=== PATIENT | male | born 1975 | race Caucasian/White ===

== ENCOUNTER 2019-04-01 00:36 | Emergency (ER) | payer SELFPAY ==
[2019-04-01 00:50] VITALS: BP 118/83; PULSE 79; RESP 18; TEMP 37.2; O2SAT 100; BMI 32.7
--- NOTE | 2019-04-01 01:01 | PC.NURSE ---
Pt went out back to pee after several drinks and tripped on something unknown. He cow tester out to stop himself and his right hand caught the wall while his left went through a window. Pt reports seeing blood squirting all over the place. Pt partner reports a small puddle of blood at the place of injury. Pt had a roll of paper towels saturated to the point of dripping when being wheeled into ED. Edgard ems stopped bleeding with abd pad and coban. [place] from lightheadedness and reached out to stop himself. Bleeding now controlled with abd pads and coban. Positive cms, radial pulse palpated. Pt reports It stings really bad when attempting to move hand and fingers.
--- NOTE | 2019-04-01 01:08 | PC.NURSE ---
Pt denies hitting his head. Pt denies other injuries. Pt is not on thinners
[2019-04-01 02:31] VITALS: BP 109/67; PULSE 81; RESP 18; O2SAT 99
--- NOTE | 2019-04-01 08:23 | ED_ITS ---
HPI - Wound/Laceration General Chief Complaint: Wound/Laceration Stated Complaint: Cut Left arm Time Seen by Provider: 04/01/19 00:40 Source: patient and family Mode of arrival: ambulatory Limitations: no limitations History of Present Illness HPI narrative: 43-year-old male with benign medical history on no home meds presents with his in the chief complaint of a laceration to his left forearm suffered a few hours ago. He stumbled while walking down some stairs and put his left arm through a glass window. He has a small but deep cut that was squirting blood on scene but has since stopped. His tetanus is current. He denies any numbness, tingling or weakness. His 1 other laceration down by his wrist but is otherwise well and free of complaint. He admittedly had a few drinks tonight. Onset (ago): hour(s) Extremity Location: Left: arm Body four view annotation: 1. Place: home Patient tetanus UTD: Yes Context: accidental Associated symptoms: pain Treatments prior to arrival: bandage Related Data Previous Rx's Medication Instructions Recorded cephalexin [Keflex] 500 mg PO QID 7 Days #28 cap 04/01/19 Allergies Allergy/AdvReac Type Severity Reaction Status Date / Time No Known Drug Allergies Allergy Verified 04/01/19 01:01 Review of Systems Constitutional Constitutional: Denies chills, Denies fatigue, Denies fever(s), Denies frequent falls, Denies lethargy and Denies weakness Eyes Eyes: Denies change in vision, Denies eye discharge, Denies irritation and Denies loss of vision ENT Ears, Nose, Mouth, and Throat: Denies change in voice, Denies dizziness, Denies neck pain, Denies sore throat and Denies throat swelling Cardiovascular Cardiovascular: Denies chest pain, Denies irregular heart rhythm, Denies lightheadedness, Denies palpitations, Denies dyspnea, Denies dyspnea on exertion and Denies orthopnea Respiratory Respiratory: Denies cough, Denies dyspnea, Denies dyspnea on exertion and Denies wheezing Gastrointestinal Gastrointestinal: Denies abdominal pain, Denies change in bowel habits, Denies diarrhea, Denies nausea and Denies vomiting Genitourinary Genitourinary: Denies hematuria, Denies flank pain, Denies urinary incontinence and Denies urinary urgency Musculoskeletal Musculoskeletal: Denies back pain, Denies muscle weakness, Denies neck pain, Denies numbness and Denies tingling Integumentary/Breasts Skin/Breast: Denies pruritus, Denies erythema, Denies rash and Reports wounds Neurologic Neurologic: Denies behavioral changes, Denies confusion, Denies dizziness, De nies frequent falls, Denies loss of vision, Denies numbness, Denies tingling and Denies weakness Psychiatric Psychiatric: Denies anxiety, Denies behavioral changes, Denies confusion, Denies depression, Denies homicidal ideation and Denies suicidal ideation Endocrine Endocrine: Denies fatigue, Denies flushing and Denies palpitations Hematologic/Lymphatic Hematologic/Lymphatic: Denies easy bruising Allergic/Immunologic Allergic/Immunologic: Denies urticaria, Denies throat swelling and Denies wheezing [facility] Social History household members: significant other Social History household members: significant other Exam Narrative Exam Narrative: GENERAL: [43] year old patient appears stated age. Well- nourished, well-developed patient, in mild distress. HEAD: Atraumatic. Normocephalic. EYES: Pupils equal round and reactive. Extraocular motions intact. No scleral icterus. No injection or drainage. ENT: Nose without bleeding, purulent drainage. Throat without erythema, tonsillar hypertrophy or exudate. Airway patent. NECK: Trachea midline. Non tender CARDIOVASCULAR: Regular rate and rhythm without murmurs, gallops, or rubs. RESPIRATORY: Clear to auscultation. Breath sounds equal bilaterally. No wheezes, rales, or rhonchi. GASTROINTESTINAL: Abdomen soft, non-tender, nondistended. EXTREMITIES: 2 cm laceration overlying mid shaft radius on left forearm. Dried blood noted but no active bleeding appreciated. No suspected tendon involvement. Patient has full range of motion and strength of the wrist and fin gers. Cap refill less 2 seconds. A smaller 1.5 cm laceration near his ulnar styloid noted, also with dried blood but no active bleeding. Compartments are soft, there is some tenderness and swelling, but minimal pain BACK: Nontender without deformity or crepitance. No flank tenderness. NEURO: AOx3. SKIN: No rash or erythema of visible areas Initial Vital Signs Initial Vital Signs: Vital Signs Temperature 98.9 F 04/01/19 00:50 Pulse Rate 79 04/01/19 00:50 Respiratory Rate 18 04/01/19 00:50 Blood Pressure 118/83 04/01/19 00:50 Pulse Oximetry 100 04/01/19 00:50 Procedures Laceration Repair Laceration 1: Site: upper extremity Side (If applicable): left Size (cm): 2 Description: linear and clean Depth: involves muscle layer Local Anesthetic: lidocaine 1% and with epi Amount of anesthesia used (mL): 4 Pre-repair: wound explored Skin layer closed with: nylon Size (cm): 4-0 Number of sutures: 6 Technique: simple, interrupted Laceration 2: Site: upper extremity Side (If applicable): left Size (cm): 1.5 Description: linear Depth: simple, single layer Local Anesthetic: lidocaine 1% and with epi Amount of anesthesia used (mL): 3 Pre-repair: wound explored Skin layer closed with: nylon Size (cm): 5-0 Number of sutures: 4 Course Vital Signs Vital signs: Vital Signs - 8 hr 04/01/19 00:50 04/01/19 02:31 Temperature 98.9 F Pulse Rate 79 81 Respiratory Rate 18 18 Blood Pressure 118/83 109/67 Pulse Oximetry 100 99 Discharge Plan Departure Patient Disposition: Home Clinical Impression: Laceration Discharge Date/Time: 04/01/19 02:39 Instructions: DI for Laceration Repair Activity Restrictions/Additional Instructions: Please keep the wound clean and dry to the best of your ability. Please monitor for signs of infection such as redness to the skin or increasing pain. Have the sutures removed by your doctor in about 7 days. If you are unable to get into your doctor, we would be happy to remove the sutures in that same timeframe. Return immediately for severe pain, numbness, or tingling of your hand/arm as this is a sign of a severe condition which would require additional, emergent help Prescriptions: New cephalexin [Keflex] 500 mg capsule 500 mg PO QID 7 Days Qty: 28 RF: 0
== END 2019-04-01 02:39 | disposition home or self-care (01) ==
PROVIDERS: Emergency Provider Emergency Medicine
DX: S51.812A Laceration without foreign body of left forearm, initial encounter (principal)
CPT/HCPCS: 12002; 99283

== ENCOUNTER 2019-04-01 05:10 | Inpatient (IN) | payer OTHER, MEDICAID, SELFPAY ==
[2019-04-01] VITALS (22 sets, daily range): BP systolic 108–167; BP diastolic 58–106; PULSE 72–113; RESP 12–24; TEMP 36.2–37.4; O2SAT 92–100; BMI 32.7
[2019-04-01] MEDS: HYDROMORPHONE 1 MG INJ IV (05:20)
[2019-04-01] MEDS: HYDROMORPHONE 0.5 MG INJ 1 MG IV ×2 (05:20→05:44)
--- NOTE | 2019-04-01 05:28 | ED_ITS ---
HPI - Extremity Injury (Upper) General Chief Complaint: Wound/Laceration Stated Complaint: Left arm laceration Time Seen by Provider: 04/01/19 05:17 Source: patient and family Mode of arrival: ambulatory Limitations: no limitations History of Present Illness HPI narrative: 43-year-old male smoker returns to the emergency department in our rate is pain complaining of numbness, tingling as well. He was seen earlier and had a laceration on the forearm after falling through a glass window. Patient had suture repairs. No arterial bleeding noted, but it was reported on scene. Patient left and ate breakfast. He was on his way to the [facility] when he started developing increasing pain in his forearm as well as numbness, tingling in his hand. This progressed and became very significant rather rapidly at which point he returned as he was instructed to. Related Data Previous Rx's Medication Instructions Recorded cephalexin [Keflex] 500 mg PO QID 7 Days #28 cap 04/01/19 Allergies Allergy/AdvReac Type Severity Reaction Status Date / Time No Known Drug Allergies Allergy Verified 04/01/19 01:01 Review of Systems Constitutional Constitutional: Denies chills, Denies fatigue, Denies fever(s), Denies frequent falls, Denies lethargy and Denies weakness Eyes Eyes: Denies change in vision, Denies eye discharge, Denies irritation and Denies loss of vision ENT Ears, Nose, Mouth, and Throat: Denies change in voice, Denies dizziness, Denies neck pain, Denies sore throat and Denies throat swelling Cardiovascular Cardiovascular: Denies chest pain, Denies irregular heart rhythm, Denies lightheadedness, Denies palpitations, Denies dyspnea, Denies dyspnea on exertion and Denies orthopnea Respiratory Respiratory: Denies cough, Denies dyspnea, Denies dyspnea on exertion and Denies wheezing Gastrointestinal Gastrointestinal: Denies abdominal pain, Denies change in bowel habits, Denies diarrhea, Denies nausea and Denies vomiting Genitourinary Genitourinary: Denies hematuria, Denies flank pain, Denies urinary incontinence and Denies urinary urgency Musculoskeletal Musculoskeletal: Denies back pain, Denies muscle weakness, Denies neck pain, Reports numbness and Reports tingling Integumentary/Breasts Skin/Breast: Denies pruritus, Denies erythema, Denies rash and Denies wounds Neurologic Neurologic: Denies behavioral changes, Denies confusion, Denies dizziness, Denies frequent falls, Denies loss of vision, Reports numbness, Reports tingling and Denies weakness Psychiatric Psychiatric: Denies anxiety, Denies behavioral changes, Denies confusion, Denies depression, Denies homicidal ideation and Denies suicidal ideation Endocrine Endocrine: Denies fatigue, Denies flushing and Denies palpitations Hematologic/Lymphatic Hematologic/Lymphatic: Denies easy bruising Allergic/Immunologic Allergic/Immunologic: Denies urticaria, Denies throat swelling and Denies wheezing [facility] Social History household members: significant other Exam Narrative Exam Narrative: GEN: AOx3 and in severe distress EYES: Pupils are equal, round, and reactive to light and accommodation. Extraoccular muscles are intact bilaterally. There is no subconjunctival hemorrhage or exudate. CHEST: Lungs are clear to auscultation bilaterally and free of wheezes, rales, or rhonchi. Heart rate is regular rhythm, there are no murmurs, clicks, rubs, or gallops. There is no chest wall tenderness. ABD: Abdomen is soft and nontender. There is no guarding or rebound. Bowel sounds are normal in all 4 quadrants. There is no mass or organomegaly. EXT: Right forearm very tense, incredibly painful, cap refill decreased. Hand is pink. Passive/active ROM results in pain out of proportion SKIN: Warm, pink, and dry. No erythema or rash Initial Vital Signs Initial Vital Signs: Vital Signs Pulse Rate 91 H 04/01/19 05:10 Respiratory Rate 24 04/01/19 05:10 Blood Pressure 153/96 H 04/01/19 05:10 Pulse Oximetry 100 04/01/19 05:10 Course Orders Ordered: ED Orders 04/01/19 05:20 Basic Metabolic Panel Stat Complete Blood Count AUTO DIFF Stat Type and Screen Stat Albuterol (Ventolin) 2.5 mg INH NOW PRN PRN Reason: Coughing, Wheezing, Dyspnea Benzocaine (Cepacol Lozenge) 1 each PO PRN PRN PRN Reason: Sore Throat Fentanyl (Sublimaze) 50 mcg IV Q5MIN PRN PRN Reason: Pain, Severe (7-10) Last Admin: 04/01/19 06:24 Dose: 50 mcg Documented by: CATHI Fentanyl (Sublimaze) 50 mcg IV Q5MIN PRN PRN Reason: Pain, Moderate (4-6) Hydromorphone HCl (Dilaudid) 0.5 mg IV Q5MIN PRN PRN Reason: Pain, Moderate (4-6) Hydroxyzine HCl (Vistaril) 25 mg IM NOW PRN PRN Reason: Pain, Mild (1-3) Lactated Ringer's (Lactated Ringers) 1,000 mls @ 42 mls/hr IV CONT GEMMA Last Admin: 04/01/19 06:25 Dose: 42 mls/hr Documented by: JOANAMDARNELL Lorazepam (Ativan) 0.5 mg IV NOW PRN PRN Reason: Anxiety Meperidine HCl (Demerol) 25 mg IV Q5MIN PRN PRN Reason: Pain or shivering Metoclopramide HCl (Reglan) 10 mg IV NOW PRN PRN Reason: Nausea And Vomiting Ondansetron HCl (Zofran) 4 mg IV NOW PRN PRN Reason: Nausea And Vomiting Discontinued Medications Heparin Sodium (Porcine) (Heparin) 5,000 unit SUBCUT NOW ONE Stop: 04/01/19 07:41 Last Admin: 04/01/19 07:40 Dose: 5,000 unit Documented by: MARIBELL Hydromorphone HCl (Dilaudid) 1 mg IV NOW ONE Stop: 04/01/19 05:32 Last Admin: 04/01/19 05:20 Dose: 1 mg Documented by: JONATHAN Hydromorphone HCl (Dilaudid) 1 mg IV NOW ONE Stop: 04/01/19 05:38 Last Admin: 04/01/19 05:44 Dose: 1 mg Documented by: JONATHAN Hydromorphone HCl (Dilaudid) 1 mg IV NOW ONE Stop: 04/01/19 05:43 Last Admin: 04/01/19 05:20 Dose: 1 mg Documented by: JONATHAN Famotidine (Pepcid) 20 mg in 50 mls @ 200 mls/hr IV NOW ONE Stop: 04/01/19 05:51 Last Admin: 04/01/19 05:44 Dose: 200 mls/hr Documented by: JONATHAN Cefazolin Sodium/Dextrose (Ancef) 2 gm in 100 mls @ 200 mls/hr IV NOW ONE Stop: 04/01/19 07:13 Last Infusion: 04/01/19 06:58 Dose: 0 mls/hr Documented by: Admin: 04/01/19 06:53 Dose: 200 mls/hr Documented by: FARA Cefazolin Sodium/Dextrose (Ancef) 2 gm in 100 mls @ 200 mls/hr IV NOW ONE Stop: 04/01/19 07:19 Last Admin: 04/01/19 06:58 Dose: Not Given Documented by: CATHI Metoclopramide HCl (Reglan) 10 mg IV NOW ONE Stop: 04/01/19 05:37 Last Admin: 04/01/19 05:45 Dose: 10 mg Documented by: JONATHAN Reevaluation(s) Reevaluation #1: little change after dilaudid Consultations Consultation #1: call to ortho immediately on arrival, clinical compartment syndrome Pressure measured with [employer] Pen. Pressure noted to be 80mmHg. Also, Diastolic at this time is 96. Delta pressure is 16 Consultation #2: Dr. Conklin at bedside Time: 05:42 Vital Signs Vital signs: Vital Signs - 8 hr 04/01/19 05:10 Pulse Rate 91 H Respiratory Rate 24 Blood Pressure 153/96 H Pulse Oximetry 100 MDM - Extremity Injury (Upper) Lab Data Result diagrams: 04/01/19 05:20 04/01/19 05:20 Labs: Lab Results 04/01/19 04/01/19 04/01/19 Range/Units 05:20 05:20 05:20 WBC 11.9 H (4.5-11.0) X10^3/uL RBC 4.26 L (4.5-5.9) X10^6/uL Hgb 13.7 (13.5-17.5) g/dL Hct 39.3 L (41-53) % MCV 92.4 (80-100) fL MCH 32.3 (26-34) PG MCHC 34.9 (30-36) % RDW 13.6 (11.6-14.8) % Plt Count 147 L (150-400) X10^3/uL Neut % (Auto) 80.0 H (50-75) % Lymph % (Auto) 13.3 L (25-40) % Ida % (Auto) 6.0 (3-14) % Eos % (Auto) 0.2 L (2-4) % Baso % (Auto) 0.5 (0-2) % Neut # (Auto) 9500 H (9427-5124) /uL Lymph # (Auto) 1600 (8852-3116) /uL Ida # (Auto) 700 (0-900) /uL Eos # (Auto) 0 (0-450) /uL Baso # (Auto) 100 (0-100) /uL Sodium 139 (137-145) mmol/L Potassium 3.9 (3.4-5.1) mmol/L Chloride 106 (98-107) mmol/L Carbon Dioxide 17 L (22-32) mmol/L BUN 11 (9-20) mg/dL Creatinine 1.20 (0.66-1.25) mg/dL Estimated GFR > 60.0 (>60) mL/min BUN/Creatinine Ratio 9.2 (6-22) Glucose 181 H (70-100) mg/dL Calcium 9.2 (8.4-10.2) mg/dL Blood Type O Positive Antibody Screen Negative Discharge Plan Departure Patient Disposition: Admitted as Observation Clinical Impression: Compartment syndrome of forearm Discharge Date/Time: 04/01/19 06:06 Admit Date/Time: 04/01/19 05:33 Admit Provider: Mirtha Saavedra
[2019-04-01] MEDS: FAMOTIDINE 20 MG/50 ML PIGGYBACK 200 MG IV (05:44)
[2019-04-01] MEDS: METOCLOPRAMIDE 10 MG/2 ML INJ IV (05:45)
[2019-04-01 05:46] LABS: Add Manual Diff / Slide Review NO; Basophils Absolute Auto 100 /uL (0-100); Basophils Percent Auto 0.5 % (0-2); Eosinophils Absolute Auto 0 /uL (0-450); Eosinophils Percent Auto 0.2 % (2-4); Hematocrit 39.3 % (41-53); Hemoglobin 13.7 g/dL (13.5-17.5); Lymphocytes Absolute Auto 1600 /uL (1100-4500); Lymphocytes Percent Auto 13.3 % (25-40); Mean Corpuscular HGB Conc 34.9 % (30-36); Mean Corpuscular Hemoglobin 32.3 PG (26-34); Mean Corpuscular Volume 92.4 fL (80-100); Monocytes Absolute Auto 700 /uL (0-900); Neutrophils Absolute Auto 9500 /uL (1500-7000); Platelet Count 147 X10^3/uL (150-400); Red Blood Cell Count 4.26 X10^6/uL (4.5-5.9); Red Cell Distribution Width 13.6 % (11.6-14.8); White Blood Cell Count 11.9 X10^3/uL (4.5-11.0)
[2019-04-01 05:58] LABS: BUN Creatinine Ratio 9.2 (6-22); Blood Urea Nitrogen 11 mg/dL (9-20); Calcium 9.2 mg/dL (8.4-10.2); Carbon Dioxide 17 mmol/L (22-32); Chloride 106 mmol/L (98-107); Estimated Glomerular Filt Rate > 60.0 mL/min (>60); Glucose 181 mg/dL (70-100); HEMOLYSIS < 15 (0-50); Potassium 3.9 mmol/L (3.4-5.1); Sodium 139 mmol/L (137-145)
--- NOTE | 2019-04-01 05:59 | PC.NURSE ---
Pt entered er in 05/03 pain. pt was seen prior for left forearm lac repair. Pt was educated on complications including compartment syndrome and his increasing pain cause him to return to the er screaming in pain. IV started in right arm. 2 verbal orders for 1mg of dilauded were recieved by this nurse for a total of 2mg dilaudid override from pyxis. Dilaudid took the edge off.
[2019-04-01] MEDS: fentaNYL 100 MCG/2 ML INJ 50 MCG IV ×3 (06:24→09:30)
[2019-04-01] MEDS: LACTATED RINGERS 1,000 ML 42 ML IV (06:25)
--- NOTE | 2019-04-01 06:25 | PM.HP.1 ---
History of Present Illness History of Present Illness Date Patient Seen: 04/01/19 Time Patient Seen: 06:09 Chief complaint: Left arm laceration Narrative: left arm compartment syndrome severe. This is a 43-year-old gentleman who was seen at [facility] Emergency Room on 03/31/2019. He lives on the [facility] he was going up the stairs at home when he slipped and fell and accidentally stuck his left arm through a plate glass window. He noted moderate bleeding at home and came to the emergency room for evaluation. In the emergency room his wound was repaired and there was no active bleeding. He was discharged to home and went to the [facility] and was waiting in line for the [facility]. He then developed severe worsening left arm pain and numbness tingling and inability to use his arm. The pain markedly progressed to the extent that he was screaming in pain and was heard by multiple people waiting in the [facility] line. Evaluation in the emergency room showed findings consistent with an acute carpet compartment syndrome with elevated compartment pressures and I was consulted on an emergent basis. Patient History Social History household members: significant other Smoking Status: Current every day smoker alcohol intake: current Family & Social History Safety & Behavioral: Feels Safe in Current Yes Environment Meds Home Medications and Allergies Home Medications Medication Instructions Recorded Confirmed Type cephalexin [Keflex] 500 mg PO QID 7 Days #28 cap 04/01/19 Rx Allergies Allergy/AdvReac Type Severity Reaction Status Date / Time No Known Drug Allergies Allergy Verified 04/01/19 01:01 Review of Systems Review of Systems Narrative: He has a history of some mild left elbow tendinitis, he is [id number], he denies any other problems on review full review of systems. Exam Vital Signs (past 8 hours): - 04/01/19 05:10 04/01/19 06:10 Pulse Rate 91 H 82 Respiratory Rate 24 Blood Pressure 153/96 H 156/99 H Pulse Oximetry 100 96 Oxygen Delivery Method Room Air Narrative Exam Narrative: HEENT benign, severe distress, writhing in pain, lungs clear, cor RRR, no murmer, marked left arm swelling with tense compartments, severe pain with passive stretch, dense numbness into the thumb index and middle finger both dorsal and palmar, adequate capillary refill, marked pain with any attempted active range of motion, palpable ulnar pulse and radial pulse, no active bleeding, surgical stitches in place Objective Labs Result Diagrams: 04/01/19 05:20 04/01/19 05:20 Labs: Laboratory Results - last 24 hr 04/01/19 04/01/19 04/01/19 05:20 05:20 05:20 WBC 11.9 H RBC 4.26 L Hgb 13.7 Hct 39.3 L MCV 92.4 MCH 32.3 MCHC 34.9 RDW 13.6 Plt Count 147 L Neut % (Auto) 80.0 H Lymph % (Auto) 13.3 L [place] % (Auto) 6.0 Eos % (Auto) 0.2 L Baso % (Auto) 0.5 Neut # (Auto) 9500 H Lymph # (Auto) 1600 [place] # (Auto) 700 Eos # (Auto) 0 Baso # (Auto) 100 Sodium 139 Potassium 3.9 Chloride 106 Carbon Dioxide 17 L BUN 11 Creatinine 1.20 Estimated GFR > 60.0 BUN/Creatinine Ratio 9.2 Glucose 181 H Calcium 9.2 Blood Type O Positive Antibody Screen Negative Assessment & Plan Assessment & Plan narrative: Acute left forearm compartment syndrome, severe. Plan emergent left fasciotomy. PAR discussed. Patient's intracompartmental pressure monitors showed elevation of 80 in the emergency room. The patient was in severe distress. His was at bedside. I explained the urgent nature of the surgery and that I recommended left forearm fasciotomy which is an extensive surgery in order to decrease the pressure on his muscles and keep his arm from dying. Long-term concerns requiring multiple operations and loss of function in the arm were discussed and the emergent nature of the procedure to avoid loss of his arm was discussed. They understand and agree and consent to surgery and he was taken immediately to the operating room.
--- NOTE | 2019-04-01 06:52 | PC.NURSE ---
Took verbal order from Quentin in OR for 2 grams on ancef, they are not able to get it out of their pyxis
[2019-04-01] MEDS: CEFAZOLIN 2 GM/100 ML FROZ.PIGGY IV ×3 (06:53→22:00)
--- NOTE | 2019-04-01 06:56 | SUR.OPER ---
Supine on padded OR bed, head on pillow, non-operable arm secured on padded arm board at <90 degrees abduction, legs uncrossed, safety belt at thigh, tape over blanket over lower legs.
--- NOTE | 2019-04-01 06:59 | PC.NURSE ---
ran ancef down to OR, OR able to pull from [place] by the time I got down there. Returned our ancef to our [facility]
--- NOTE | 2019-04-01 07:10 | SUR.HOLD ---
Pt brought to [facility] to prep for surgery, VS done, pt medicated with Fentanyl and after all verification components met pt then taken quickly into surgery.
[2019-04-01] MEDS: HEPARIN 5,000 UNIT/ML VIAL 5000 UNIT SUBCUT (07:40)
[2019-04-01] MEDS: THROMBIN (RECOMBINANT) 5,000 UNIT VIAL 5000 UNIT TOP (07:54)
[2019-04-01] MEDS: HYDROMORPHONE 2 MG INJ 0.5 MG IV ×4 (09:19→09:42)
--- NOTE | 2019-04-01 10:24 | SUR.PHASEI ---
pt transferred to acute care floor in stable condition, vss. pt alert and talking to RN during transport. pt girlfriend in room upon arrival to room. bedside report given to ALEXANDRE Barboza upon arrival to room. Transferred care of pt to ALEXANDRE Barboza at that time.
[2019-04-01] MEDS: OXYCODONE IR 5 MG TABLET PO ×3 (12:40→23:46)
[2019-04-01] MEDS: ONDANSETRON 4 MG ODT PO (12:43)
--- NOTE | 2019-04-01 13:15 | PM.OP.1 ---
Operative Date/Time/Diagnoses Date of procedure: 04/01/19 Time of procedure: 06:09 Pre-op diagnosis: Acute severe left forearm compartment syndrome Post-op diagnosis: other (Severe left forearm compartment syndrome with a complete laceration of the radial artery with active arterial bleeding) Procedure & Clinicians Procedure: Extensive left forearm fasciotomy volar and dorsal with debridement of limited severely ischemic FCR muscle, radial artery ligation with exploration of the penetrating wound with injury to arterial structures, inter compartmental pressure monitoring preoperatively folder and dorsal and post fasciotomy and release volar and dorsal, carpal tunnel release Same procedure as scheduled: Yes Indications: This is a 43-year-old gentleman who was taken to the operating room on an emergent basis for a severe left compartment syndrome. He had a history of injury to his left forearm with a plate glass window at home and then developed severe left arm pain with markedly elevated compartment pressures and a clinical examination consistent with severe compartment syndrome. The OR crew was quickly mobilized and he was brought to the operating room on an emergent basis as soon as possible for fasciotomy. Surgeon: Mirtha Saavedra Mechanic Insulator: Anand Charlton Anesthesia Type: General Operative Notes Findings: Preoperative Intraoperative compartmental pressure monitoring showed volar compartment pressure 87, dorsal compartment pressure more than 60, tense compartments with ischemic appearing muscle, a small amount of nonviable appearing flexor carpi radialis muscle, complete laceration of the radial artery with active bleeding, palpable ulnar artery with an adequately perfused hand and viable appearing hand, adequate filling of the radial artery distal to the level of the transection which was pulsatile Closure Type: not applicable Estimated Blood Loss (mL): 250 Tourniquet time (min): 0 Procedure in detail: Patient was brought to the operating room on an emergent basis. The operating room crew was quickly mobilized and the patient underwent a general anesthesia with full stomach precautions. His left upper extremity was prepped and draped sterilely. A time-out was performed. Preoperative antibiotics were not available due to a problem with the pyxis, but the patient had previously received antibiotics in the emergency room. A high arm tourniquet was applied in case it was required to control uncontrolled bleeding. The patient was carefully prepped and [place] pressure monitor revealed marked elevation of the pressures in the volar compartment over 85. Dorsal inner compartmental pressure monitoring revealed pressures in the 60s. Next he was prepped for surgical approach. An extensive volar skin incision was made from the proximal aspect of the forearm distally and in a curvilinear pattern across the volar crease and over the transverse carpal ligament. Dissection was carried out down to the forearm fascia. The volar compartments were extremely tense. The fascia was meticulously incised over the volar compartments. The muscle immediately bulged through the fascia. Metzenbaum scissors was used to release the fascia both proximally and distally for each compartment. The patient had a radial volar skin incision which had previously been repaired as well as a more ulnar volar skin incision. Dissection was carried out along the radial side of the forearm in order to confirm adequate fascial release. The fascia was carefully released and there was marked pulsatile bleeding from deep within the compartment. Direct pressure was placed on the arterial bleeding. Dr. Martins from the emergency room was available in the operating room and scrubbed in to hold manual compression so that I had 2 hands to dissect around the artery. The distal artery was not actively bleeding. Dr. Charlton from general surgery with vascular experience was available to provide additional assistance. Hemostasis was controlled with compression until the proximal radial artery could be adequately controlled with a vessel loop. Dissection was carried out around the artery and it was completely clear that there was a complete transection. The artery was carefully examined and both Dr. Charlton and I agreed that the patient had a viable appearing hand he had an intact arch and there was good pulsatile backflow into the artery distal to the transection. The artery was carefully examined it was noted to be damaged and it was not felt to be a good candidate for repair. Combination of surgical ties and vascular clips was use to tie off the artery. The wound was meticulously irrigated with normal saline. At that point there was no active arterial bleeding. Gelfoam and thrombin was packed into the wound where there was a small amount of muscle bleeding. Next the compartments were once again checked and the forearm was meticulously re-irrigated with normal saline. There was a large amount of clot throughout the forearm which was carefully removed. Forearm volar compartments were carefully checked and noted to be adequately decompressed. Next attention was directed to the distal aspect of the forearm. The transverse carpal ligament was identified and meticulously released. There was moderate hematoma which had dissected into the carpal canal. It was meticulously irrigated. The median nerve was noted to be intact. Forearm fascia was reached checked and noted to be adequately released. Next attention was directed at the dorsal aspect of the arm. The dorsal distal arm was soft but the mobile wad was noted to be tense and had significant swelling. A dorsal radial incision was made dissection was carried out through skin and subcutaneous tissues. The fascia was identified and meticulously released. There was obvious swelling in the muscle but the muscle appeared viable. The release both proximally and distally was checked. Next the inner compartment all pressure monitor was used to check the pressure of the compartments both on the dorsal and volar aspect of the forearm. Intracompartmental pressure monitoring revealed pressures under 10 both dorsally and volarly. The wound was meticulously irrigated with normal saline. The arm appeared viable with adequate capillary refill. The wounds were covered with saline sponges and the wound was dressed sterilely. Patient was placed in a bulky splint. Complications: none Post-operative Condition: stable (Arm appeared viable, patient will be monitored for neurovascular checks and additional bleeding) Disposition: Acute Care Plan for aftercare: Wound check in 24-48 hours, continue IV antibiotics, possible partial DPC in 48 hours or 7-10 days depending upon clinical course.
[2019-04-01] MEDS: ACETAMINOPHEN 325 MG TABLET 975 MG PO ×2 (14:54→20:14)
[2019-04-01] MEDS: hydrOXYzine pamoate 25 MG CAPSULE 50 MG PO ×2 (14:57→23:46)
[2019-04-01] MEDS: HYDROMORPHONE 0.5 MG INJ IV (14:57)
--- NOTE | 2019-04-01 14:58 | PM.PN.1 ---
Subjective Subjective Date Patient Seen: 04/01/19 Time Patient Seen: 14:19 Interval history: Pain is markedly decreased in comparison to preoperatively. He still has residual numbness but it is improved in comparison to previously. Exam Vital Signs (past 8 hours): - 04/01/19 09:02 04/01/19 09:07 04/01/19 09:12 Temperature 97.2 F L Pulse Rate 109 H 113 H 110 H Respiratory Rate 12 14 12 Blood Pressure 167/106 H 163/93 H 141/94 H Pulse Oximetry 94 97 98 04/01/19 09:17 04/01/19 09:22 04/01/19 09:27 Temperature Pulse Rate 100 H 95 H 99 H Respiratory Rate 15 21 13 Blood Pressure 154/92 H 149/84 H 145/86 H Pulse Oximetry 95 98 98 04/01/19 09:36 04/01/19 09:51 04/01/19 10:06 Temperature 97.3 F L 97.5 F L Pulse Rate 95 H 95 H 98 H Respiratory Rate 13 18 12 Blood Pressure 129/91 H 130/79 128/70 Pulse Oximetry 98 98 93 04/01/19 10:20 04/01/19 11:00 04/01/19 11:20 Temperature 97.9 F 98.5 F Pulse Rate 90 90 81 Respiratory Rate 16 14 16 Blood Pressure 142/93 H 131/90 111/75 Pulse Oximetry 97 94 93 04/01/19 12:20 04/01/19 13:20 Temperature 97.2 F L 97.3 F L Pulse Rate 91 H 82 Respiratory Rate 16 16 Blood Pressure 123/65 128/82 Pulse Oximetry 97 97 Oxygen Delivery Method Room Air Oxygen Flow Rate 0 Narrative Exam Narrative: Splints in place, dressing is dry, able to fire his finger flexors and extensors, adequate capillary refill, minimal pain with both active and passive gentle range of motion in his hand, decreased sensation both on the palmar and volar aspect of his wrist but improved in comparison to preoperatively Objective Labs Result Diagrams: 04/01/19 05:20 04/01/19 05:20 Labs: Laboratory Results - last 24 hr 04/01/19 04/01/19 04/01/19 05:20 05:20 05:20 WBC 11.9 H RBC 4.26 L Hgb 13.7 Hct 39.3 L MCV 92.4 MCH 32.3 MCHC 34.9 RDW 13.6 Plt Count 147 L Neut % (Auto) 80.0 H Lymph % (Auto) 13.3 L [place] % (Auto) 6.0 Eos % (Auto) 0.2 L Baso % (Auto) 0.5 Neut # (Auto) 9500 H Lymph # (Auto) 1600 [place] # (Auto) 700 Eos # (Auto) 0 Baso # (Auto) 100 Sodium 139 Potassium 3.9 Chloride 106 Carbon Dioxide 17 L BUN 11 Creatinine 1.20 Estimated GFR > 60.0 BUN/Creatinine Ratio 9.2 Glucose 181 H Calcium 9.2 Blood Type O Positive Antibody Screen Negative Assessment & Plan Assessment & Plan narrative: Severe left volar forearm compartment syndrome and radial artery laceration clinically improved after fasciotomy. Plan continue IV antibiotics and anticipate return to operating room on Tuesday for irrigation and debridement and possible partial DPC. Pain control and elevation with gentle range of motion in the interim. Quality VTE Deep Vein Thrombosis/Pulmonary Embolism Present on Admission: No
[2019-04-01] MEDS: HYDROMORPHONE 2 MG TABLET 4 MG PO ×2 (15:28→20:14)
[2019-04-01 16:56] LABS: Hematocrit 36.1 % (41-53); Hemoglobin 12.3 g/dL (13.5-17.5)
--- NOTE | 2019-04-01 17:26 | PT-IP ANOTE ---
PT consult received. Unable to see patient today due to time constraints. Will follow up on 04/02/19
--- NOTE | 2019-04-01 19:00 | DI.RAD.S_ITS ---
PROCEDURE: XR FOREARM RT 2V INDICATIONS: post op compartment syndrome surgery TECHNIQUE: 2 views of the forearm were acquired. COMPARISON: None. FINDINGS: Bones: No fractures or dislocations. No suspicious bony lesions. Soft tissues: Diffuse soft tissue swelling. Surgical clips project in the volar soft tissues IMPRESSION: Soft tissue swelling. No fracture. No radiopaque foreign body identified. Dictated by: Ayaan Garcia M.D. on 04/01/2019 at 21:29 Approved by: Ayaan Garcia M.D. on 04/01/2019 at 21:30
--- NOTE | 2019-04-01 19:14 | PC.NURSE ---
pt returned from previous visit today with increased swelling and disproportional pain. He states he can not feel his fingers and it is almost impossible to move his hand and fingers. proximal left forearm skin very tight and painful to touch. Pt is audibly gritting his teeth in pain. Provider notified and at bedside upon pt arrival.
[2019-04-01] MEDS: DOCUSATE 100 MG CAPSULE PO (20:19)
--- NOTE | 2019-04-01 21:52 | PC.NURSE ---
Pt is A and O x 4, VSS. He rates his pain 8-9/10 but is able to ambulate, use the BR, eat, drink etc., without significant distress. He has pain when moving his fingers but he is able to do so. Good CMS and faint brachial pulse. He took a shower with assist. SO in room.
[2019-04-02] VITALS (7 sets, daily range): BP systolic 106–150; BP diastolic 50–71; PULSE 76–95; RESP 15–20; TEMP 36.3–37.1; O2SAT 96–98
[2019-04-02] MEDS: HYDROMORPHONE 2 MG TABLET 4 MG PO ×6 (02:22→23:46)
[2019-04-02 05:38] LABS: Hematocrit 31.7 % (41-53); Hemoglobin 10.8 g/dL (13.5-17.5); Mean Corpuscular Hemoglobin 32.4 PG (26-34); Mean Corpuscular Volume 95.2 fL (80-100); Platelet Count 87 X10^3/uL (150-400); Red Blood Cell Count 3.32 X10^6/uL (4.5-5.9); Red Cell Distribution Width 13.4 % (11.6-14.8); White Blood Cell Count 12.7 X10^3/uL (4.5-11.0)
[2019-04-02] MEDS: CEFAZOLIN 2 GM/100 ML FROZ.PIGGY IV ×3 (06:18→23:41)
--- NOTE | 2019-04-02 07:24 | PM.PNPO.1 ---
Subjective Subjective Date Patient Seen: 04/02/19 Time Patient Seen: 07:24 Interval history: Patient denies fever chills. No nausea vomiting. Pain is severe. Exam Vital Signs (past 8 hours): - 04/01/19 23:57 04/02/19 05:46 Temperature 98.6 F 97.6 F Pulse Rate 105 H 84 Respiratory Rate 16 16 Blood Pressure 108/58 L 106/50 L Pulse Oximetry 97 98 Fraction of Inspired Oxygen 21 Oxygen Delivery Method Room Air Oxygen Flow Rate 0 Narrative Exam Narrative: Dressing in place. Sensation intact to all fingers, left upper extremity. Able to move all fingers however very painful due to do so. All fingers are warm and dry. Objective Labs Result Diagrams: 04/02/19 05:10 04/01/19 05:20 Labs: Laboratory Results - last 24 hr 04/01/19 04/02/19 16:48 05:10 WBC 12.7 H RBC 3.32 L Hgb 12.3 L 10.8 L Hct 36.1 L 31.7 L MCV 95.2 MCH 32.4 MCHC 34.0 RDW 13.4 Plt Count 87 L Assessment & Plan Post-op Postoperative Procedures: Procedures Operation Date: 04/01/19 07:00 Actual Procedures Side Surgeon p Dupuytren's Contracture Release Palmar Fasciectomy Mirtha Saavedra MD Postop day 1 status post extensive left forearm fasciotomy volar and dorsal with debridement of limited severely ischemic FCR muscle, radial artery ligation with exploration of the penetrating wound with injury to arterial structures, anterior compartment all pressure monitoring preoperatively volar and dorsal and post fasciotomy, released volar and dorsal, carpal tunnel release. Work on pain control, elevation left upper extremity with gentle range of motion in the interim. Continue IV antibiotics and possible return to OR tomorrow for irrigation debridement and possible DPC. Quality VTE Deep Vein Thrombosis/Pulmonary Embolism Present on Admission: No
[2019-04-02] MEDS: ACETAMINOPHEN 325 MG TABLET 975 MG PO ×3 (07:30→19:51)
[2019-04-02] MEDS: DOCUSATE 100 MG CAPSULE PO ×2 (07:30→19:52)
[2019-04-02] MEDS: POLYETHYLENE GLYCOL 3350 17 GM POWD.PACK PO (07:30)
[2019-04-02] MEDS: HYDROMORPHONE 0.5 MG INJ IV ×6 (07:31→22:41)
[2019-04-02] MEDS: diphenhydrAMINE 25 MG TABLET PO ×2 (07:41→16:47)
--- NOTE | 2019-04-02 07:42 | PC.NURSE ---
Addendum entered by Katlin Vazquez R.N. 04/02/19 15:23: Spoke with Dr Myles via telephone at 1430, gave MD update on patients condition. Dr Myles informed of patients pain of 7/10 and that he was getting the dilaudid 4mg PO q4 and was requiring the 0.5mg IVP dilaudid q2 for breakthrough. Gabapentin added. Patient reports the IVP is very helpful for the burning pain to the LUE. Capillary refill remains intact and unchanged from this mornings assessment and <2sec. Fingers are warm and patient is able to wiggle fingers. Patient keeping extremity elevated. Several dime sized spot of sanguineous drainage noted on pillow case. Small area of dried drainage noted to dressing at elbow. Evening RN given report and update. Addendum entered by Katlin Vazquez R.N. 04/02/19 14:16: Patient rates LUE pain 9/10 GIven 0.5mg IVP. Patient reports relief from iv medication, states it takes the edge off. Original Note: Pt alert oriented, rates pain to LUE 7/10, given PO dilaudid at 0618. Given 0.5mg IVP dilaudid for break through. Also c/o itching, received order for po benadryl, given. CMS intact to LUE, patient denies numbness, tingling, able to move all fingers, LUE elevated.
--- NOTE | 2019-04-02 09:00 | PT.IIE ---
Surgery Performed Operation Date: 04/01/19 07:00 Actual Procedures p Dupuytren's Contracture Release Palmar Fasciectomy - Mirtha Saavedra MD Operation Date: 04/03/19 16:45 <No data on this case meets the specified criteria> Physical Therapy Inpatient Evaluation/Re-Eval M2 PT-IP Current Condition Start: 04/02/19 08:53 Freq: NEEDED Status: Active Protocol: Document 04/02/19 09:00 RS (Rec: 04/02/19 13:16 RS [id number]) Physical Therapy Current Condition Current Condition Evaluation Date 04/02/19 Treatment Diagnosis s/p L forearm fasciotomy Onset Date 04/01/19 Precautions Other Precautions in bulky splint for LUE with open incision M3 PT-IP Subjective Start: 04/02/19 08:53 Freq: NEEDED Status: Active Protocol: Document 04/02/19 09:00 RS (Rec: 04/02/19 13:16 RS [id number]) Subjective Physical Therapy Visit Type Type Initial Evaluation Visit Start Time 08:30 Visit Stop Time 09:00 Total Visit Minutes 30 Therapy Pain Assessment Pain When Pain Assessed At Rest Pain Present Pain Present Pain Reported M4 PT-IP Mobility and Gait Start: 04/02/19 08:53 Freq: NEEDED Status: Active Protocol: Document 04/02/19 09:00 RS (Rec: 04/02/19 13:16 RS [id number]) PT-Bed Mobility Assessment Supine to Sit Supine to Sit Independent Sit to Supine Sit to Supine Independent PT-Transfer Assessment Sit to and From Stand Sit to and from Stand Independent Equipment Transfer Assistive Device None Transfer Ability Level of Assist Independent Gait Assessment Gait Gait Assistance Required: Independent Gait Deviations General Gait Pattern Within Normal Limits PT-Balance Assessment Sitting Balance and Reactions Static Sitting Balance Ability Normal Dynamic Sitting Balance Ability Normal Standing Balance and Reactions Static Standing Balance Ability Normal Dynamic Standing Balance Ability Normal Device Used none M5 PT-IP Objective Assessments Start: 04/02/19 08:53 Freq: NEEDED Status: Active Protocol: Document 04/02/19 09:00 RS (Rec: 04/02/19 13:16 RS [id number]) Orientation Orientation/Cognition Level of Alertness Alert Orientation Name,Age,Birthday,Month,Date, Year,Day of Week,Place, Situation Language Function Ability No Deficits Noted Safety Awareness Understands Safety Issues Memory Description No Deficits Noted Gross Range of Motion Lower Extremity ROM Assessment Within Functional Limits Strength Lower Extremity Strength Assessment Within Functional Limits M7 PT-IP Assessment and Plan Start: 04/02/19 08:53 Freq: NEEDED Status: Active Protocol: Document 04/02/19 09:00 RS (Rec: 04/02/19 13:16 RS [id number]) PT Summary Assessment and Plan Potential Rehabilitation Potential Excellent Status of Condition at Evaluation Evolving Summary Impairments Pain Assessment Summary Pt presents with LUE in bulky splint after forearm fasciotomy yesterday. Pt's main limiting factors are more specific to function of the LUE and self-care. Pt is independent with mobility and so far is getting assist with any self-care from his who was a BUSINESS CONTINUITY DIRECTOR. Pt has no acute PT needs, therefore, acute PT will sign off with the anticipation that pt will continue to mobilize regularly with encouragement from nursing staff. It is highly recommended that patient receive acute OT while here in the hospital (either for self -care only and/or for beginning to work on L hand/ arm function) once it is deemed appropriate by ortho team to begin using the LUE. Frequency of Treatment Frequency Of Treatment Discharge Recommendations To Nursing Amount of Assist Needed Standby Assistance Discharge Recommendations PT Discharge Recommendations Home with Assistance, Outpatient PT Other Discharge Recommendations needs a referral to a hand therapist (can be PT or OT)
[2019-04-02] MEDS: hydrOXYzine pamoate 25 MG CAPSULE 50 MG PO ×2 (10:18→19:52)
[2019-04-02] MEDS: SODIUM CHLORIDE 0.9% FLUSH 10 ML IV ×4 (10:19→21:00)
[2019-04-02] MEDS: GABAPENTIN 300 MG CAPSULE PO ×2 (16:44→23:46)
--- NOTE | 2019-04-02 17:05 | CM.SWNOTE ---
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 Pt is a 43 yo male admitted to due to injury resulting in compartment syndrome. Pt lives with SO and her 2 children ages 18 and 28 on [address]. Pt reported that he tripped over their dog and went through a glass window causing significant injury to his arm. Pt does not have a current PCP. Payor: [employer]. Pharmacy used is the pharmacy on [address]. Pt is independent with all ADLs. 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 Although he will not be able to do the physical work, he reported that he will still be able to supervise the jobs upon discharge. Plan: Discharge home when medically stable. Pt [place] the ferry to return home to [place]. CM to follow if discharge needs arise. 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 No Advance Directives on File No History Provided By Patient Has Patient been admitted in last 30 No days? Prior Living Arrangements House Household Members significant other Type of transporation used prior to Drives own vehicle admit Independent with ADL's Yes Is patient alert and oriented? Yes Caregiver for Another No Barriers to Discharge No Discharge Plan Home Referrals Initiated None needed Next Review Type Continued Stay Review
--- NOTE | 2019-04-02 18:23 | PC.NURSE ---
Addendum entered by Mahogany Dinh R.N. 04/02/19 22:42: Pt up ad karen in room. Med Q 2 hrs for discomfort w/ minimal relief rangiong [id number] CSM intact. Relatively uneventful evening Call light w/in reach. Calls appropriately for needs. Continue w/plan of care. Addendum entered by Mahogany Dinh R.N. 04/02/19 22:31: Original Note: Pt resting, left arm elevated on pillows. Able t wiggle finger, circulation good. Med at 1655 w/ diaudid IVP for 8/10 pain w.fair relief. HL RFA intact/patent. Up independently in room Call light w/in reach, calls appropriately for needs.
[2019-04-03] VITALS (13 sets, daily range): BP systolic 115–155; BP diastolic 56–92; PULSE 72–111; RESP 8–20; TEMP 36.1–37.1; O2SAT 92–100
[2019-04-03] MEDS: HYDROMORPHONE 0.5 MG INJ IV ×4 (00:37→08:59)
[2019-04-03] MEDS: SODIUM CHLORIDE 0.9% FLUSH 10 ML IV ×6 (02:52→20:20)
--- NOTE | 2019-04-03 04:23 | PC.NURSE ---
0350 Checked pt. to administer 4 mg. of PO Dilaudid, but he's sound asleep. Returned 2 tabs. of PO Dilaudid back to [facility], Will monitor & medicate him when he wakes up.
[2019-04-03] MEDS: GABAPENTIN 300 MG CAPSULE PO (06:00)
[2019-04-03] MEDS: HYDROMORPHONE 2 MG TABLET 4 MG PO (06:49)
[2019-04-03] MEDS: CEFAZOLIN 2 GM/100 ML FROZ.PIGGY IV ×3 (09:00→21:39)
[2019-04-03] MEDS: hydrOXYzine pamoate 25 MG CAPSULE 50 MG PO (09:00)
[2019-04-03] MEDS: diphenhydrAMINE 25 MG TABLET PO ×2 (09:07→23:36)
--- NOTE | 2019-04-03 09:58 | PC.NURSE ---
Pt woken for clear liquid diet before being NPO for surgery this afternoon. Once awake rates pain to LUE 9/10 given 0.5 mg IVP dilaudid. Pt c/o burning to IV site, IV removed. New one started. Patient ate clear liquid for breakfast and is now NPO. New order for IV pain meds taken.
[2019-04-03] MEDS: HYDROMORPHONE 1 MG INJ IV ×5 (10:20→19:02)
[2019-04-03] MEDS: SODIUM CHLORIDE 0.9% 1,000 ML 75 ML IV (14:27)
--- NOTE | 2019-04-03 18:22 | PC.NURSE ---
Addendum entered by Mahogany Dinh R.N. 04/03/19 22:40: Pt remains in surgery at this time. Addendum entered by Mahogany Dinh R.N. 04/03/19 21:36: Med @ 1900 for 01/31 pain. Pt escorted to surgery by staff. Will assess upon return to room. Original Note: Pt up ad karen in room. Awaiting surgery this evening. Lungs clear, SpO2 98% RA Dsg to left arm intact. CSM + can wiggle fingers. Med @ 1700 for discomfort w/fair relief. Remains NPO at this time. Call light w/in reach, call appropriately for needs.
[2019-04-03] MEDS: LACTATED RINGERS 1,000 ML 42 ML IV (20:54)
--- NOTE | 2019-04-03 21:15 | PM.PREOP ---
Pre-operative Note Interval Note History & Physical reviewed/Exam performed by Physician: No Changes to H&P: No H&P completed within 30 days and has changed as indicated here:: He notes his numbness in his hand is markedly improved in comparison to previously. He is able to fire his finger flexors and extensors but is continuing to have significant pain. He has adequate capillary refill no substantial pain with gentle passive stretch of his muscles and his hand is warm and viable
--- NOTE | 2019-04-03 21:17 | P.OP_ITS ---
Operative Date/Time/Diagnoses Date of procedure: 04/03/19 Time of procedure: 21:17 Pre-op diagnosis: Left arm compartment syndrome with history of fasciotomies and large open wounds, laceration to the radial aspect of the arm with history of radial artery laceration Post-op diagnosis: same Procedure & Clinicians Procedure: Irrigation and debridement with limited excisional debridement of necrotic muscle and partial DPC 8 cm dorsal wound, 16 cm of the volar wound which was a partial closure. Same procedure as scheduled: Yes Indications: This is a gentleman that previously underwent a fasciotomy for a forearm compartment syndrome and ligation of his radial artery for complete artery transection. He is now brought to the operating room for repeat evaluation irrigation and debridement and potential debridement of necrotic muscles. Surgeon: Mirtha Saavedra Click Yes if Unassisted: Yes Anesthesia Type: General Operative Notes Findings: No active bleeding, viable appearing muscles, 8 cm dorsal incision closed with no tension, more than 25 cm volar incision partially closed about 16 cm including the carpal canal and the part of proximal portion. Vessel loop and skin keiry used to provide some slight residual tension in the central section. Closure Type: non-primary Specimen(s): none sent Applied: cast(s) Estimated Blood Loss (mL): 50 Blood products transfused: none Tourniquet time (min): 0 Procedure in detail: Patient is brought to the operating room and underwent induction of a general anesthesia. Left upper extremity was prepped and draped standard sterile fashion. High arm tourniquet was applied but not elevated. Time-out was performed and antibiotics were given. Patient was prepped sterilely. The left arm was meticulously irrigated with normal saline. His wounds were carefully explored. Dorsally his incision appeared to have adequate decompression and the compartment was soft and there did not appear to be any necrotic muscle. The dorsal 8 cm incision was irrigated with normal saline and then closed with interrupted are then then closed with interrupted nylon. Attention was directed to the volar aspect of the arm. The arm was meticulously irrigated with normal saline. I carefully checked all of the volar compartments as well as the carpal canal of there was good decompression of the median nerve of there was no active bleeding. There Was a small amount of narcotic of mildly necrotic tissue noted in the most radial aspect of the forearm in the region of the laceration. A small amount of necrotic appearing muscle was excisionally debrided. The majority of the muscles and the volar compartment were carefully checked and they were all noted to be viable pink and with good circulation. The wound was meticulously irrigated and some additional hematoma was evacuated. The carpal canal was closed with interrupted nylon. And the forearm was gently or loosely closed partially closed 16 cm of the volar wound but the overall wound was about more than 25 cm. In the more central aspect of the wound I did place skin keiry and a vessel loop to serve as light retention to maintain some light slight tension on the skin. The wound was irrigated with normal saline. The open section was packed was covered with saline spoke soaked gauze sponge. the patient was placed in a short-arm splint. Marcaine was injected. Complications: none Post-operative Condition: stable Disposition: Acute Care Plan for aftercare: Continue IV antibiotics, okay to work on gentle range of motion in the fingers and elbow. Pain control as needed. Return to the operating room likely Tuesday for additional I and D and closure is needed. outpatient hand therapy in the [facility].
--- NOTE | 2019-04-03 21:46 | SUR.OPER ---
Supine on padded OR bed, head on pillow, right arm secured on padded arm board at <90 degrees abduction, Left arm on large padded armboard controlled by surgeon, legs uncrossed, safety belt at thigh.
[2019-04-03] MEDS: BUPIVACAINE 0.5% (PF) VIAL 30 ML INJ (21:53)
[2019-04-03] MEDS: HYDROMORPHONE 2 MG INJ 0.5 MG IV ×4 (23:07→23:33)
--- NOTE | 2019-04-03 23:11 | SUR.PHASEI ---
Clarified dilaudid pacu order with dr greenberg. Ok to give 0.5 mg every 5min in pacu
[2019-04-03] MEDS: OXYCODONE IR 5 MG TABLET 10 MG PO (23:25)
--- NOTE | 2019-04-03 23:38 | SUR.PHASEI ---
Pt intermittently dozing and waking, cussing. Reported pain improving. C/O itching, medicated with Benadry.
[2019-04-04] VITALS (12 sets, daily range): BP systolic 114–149; BP diastolic 57–99; PULSE 65–106; RESP 10–22; TEMP 36.4–37.3; O2SAT 93–99
--- NOTE | 2019-04-04 | SUR.PHASEI ---
Report called to Anthony. Pt removed o2, sats 95% ra while awake, in low 90s on ra while dozing
--- NOTE | 2019-04-04 00:23 | SUR.PHASEI ---
Pt transferred to the floor with pulse ox. Report to Anthony. VS stable. IV saline locked. LT arm drsg cdi. Lt fingers warm, yellow/pink, weak movement to fingers. Family present.
[2019-04-04] MEDS: GABAPENTIN 300 MG CAPSULE PO ×4 (00:58→18:00)
[2019-04-04] MEDS: HYDROMORPHONE 1 MG INJ IV ×7 (00:59→21:10)
[2019-04-04] MEDS: hydrOXYzine pamoate 25 MG CAPSULE 50 MG PO ×3 (03:32→19:05)
--- NOTE | 2019-04-04 04:02 | PC.NURSE ---
Addendum entered by Anthony Jarrett R.N. 04/04/19 07:03: 0615: IV found out. Restarted in rt forearm. Original Note: Hide And Skin Classer Note: 0015: Pt back to room 216 from PACU. Pt awake, alert. Lt arm elevated on pillow, with dressing and splint intact. Lt fingers are warm to touch, pale pink, and pt is able to wiggle fingers; when asked if he feels any numbness, pt states not really. IV in place in rt hand and NS started at 75cc/hr. Pt used urinal after arrival. Pt recently medicated for pain with Dilaudid and Oxycodone. Sig. other at bedside.
[2019-04-04] MEDS: diphenhydrAMINE 25 MG TABLET PO ×3 (06:12→21:07)
[2019-04-04] MEDS: CEFAZOLIN 2 GM/100 ML FROZ.PIGGY IV ×2 (07:25→16:50)
[2019-04-04] MEDS: ACETAMINOPHEN 325 MG TABLET 975 MG PO ×3 (07:26→21:09)
[2019-04-04] MEDS: POLYETHYLENE GLYCOL 3350 17 GM POWD.PACK PO (07:26)
[2019-04-04] MEDS: SODIUM CHLORIDE 0.9% FLUSH 10 ML IV ×4 (07:27→21:12)
[2019-04-04] MEDS: DOCUSATE 100 MG CAPSULE PO ×2 (07:27→21:07)
--- NOTE | 2019-04-04 07:58 | PM.PNPO.1 ---
Subjective Subjective Date Patient Seen: 04/04/19 Time Patient Seen: 07:58 Interval history: Patient's pain has been moderate to severe. Denies fever chills. No nausea vomiting. He has noticed he is able to move his fingers better and denies numbness in the left upper extremity. Exam Vital Signs (past 8 hours): - 04/04/19 00:02 04/04/19 00:10 04/04/19 00:40 Temperature 98.9 F 98.5 F Pulse Rate 91 H 86 92 H Respiratory Rate 10 L 22 20 Blood Pressure 137/99 H 129/73 128/82 Pulse Oximetry 93 96 98 04/04/19 01:10 04/04/19 02:10 04/04/19 03:10 Temperature 98.5 F 98.6 F 98.8 F Pulse Rate 105 H 106 H 102 H Respiratory Rate 20 18 Blood Pressure 140/70 131/79 120/58 L Pulse Oximetry 95 96 94 Fraction of Inspired Oxygen 21 Oxygen Delivery Method Room Air Oxygen Flow Rate 2 Narrative Exam Narrative: 43-year-old male resting comfortably in bed in no apparent distress. The dressing is clean, dry and intact. Fingers are mildly swollen. He has motor function to all fingers. Good capillary refill. Sensation intact to light touch. Objective Labs Result Diagrams: 04/02/19 05:10 04/01/19 05:20 Assessment & Plan Post-op Postoperative Procedures: Procedures Operation Date: 04/01/19 07:00 Actual Procedures Side Surgeon p Dupuytren's Contracture Release Palmar Fasciectomy Mirtha Saavedra MD Operation Date: 04/03/19 16:45 Actual Procedures Side Surgeon p Arm I&D with limited debridement of muscle w/ partial DPC Left Mirtha Saavedra MD Postop day 3 extensive left forearm fasciotomy volar and dorsal with debridement of limited severely ischemic FCR muscle, radial artery ligation and exploration of penetrating wound with injury to arterial structures Postop day 1 status post irrigation debridement with limited excisional debridement of necrotic muscle and partial DPC 8 cm dorsal wound, 16 cm of volar wound. Continue IV antibiotics. Okay to work on gentle range of motion of fingers and elbow. Continue work on pain control. Likely return in 2 days for additional I and D and closure. Patient will need outpatient hand therapy after discharge from the hospital. Quality VTE Deep Vein Thrombosis/Pulmonary Embolism Present on Admission: No
[2019-04-04] MEDS: HYDROMORPHONE 2 MG TABLET 4 MG PO ×4 (08:34→21:07)
[2019-04-04] MEDS: HYDROMORPHONE 0.5 MG INJ IV ×2 (15:01→18:00)
[2019-04-05] MEDS: CEFAZOLIN 2 GM/100 ML FROZ.PIGGY IV ×4 (00:16→23:42)
[2019-04-05] MEDS: GABAPENTIN 300 MG CAPSULE PO ×5 (00:17→23:41)
[2019-04-05] MEDS: hydrOXYzine pamoate 25 MG CAPSULE 50 MG PO ×4 (00:17→20:57)
[2019-04-05] MEDS: HYDROMORPHONE 1 MG INJ IV ×14 (00:19→23:41)
--- NOTE | 2019-04-05 02:57 | PC.NURSE ---
Cyber Incident Analyst Note: 0015: Awake, resting in bed. Lt arm elevated on pillow. Vital signs stable. IV in place in rt forearm. Pt states his pain is 9/10: medicated with Dilaudid 1mg IV and Vistaril 50mg po. Dressing and splint intact to lt arm, clean and dry. Lt fingers are warm to touch, with brisk capillary refill, and pt denies numbness and is able to wiggle them.
[2019-04-05 06:04] VITALS: BP 120/70; PULSE 63; RESP 15; TEMP 36.3; O2SAT 98
[2019-04-05] MEDS: HYDROMORPHONE 2 MG TABLET 4 MG PO ×5 (06:15→22:02)
[2019-04-05] MEDS: diphenhydrAMINE 25 MG TABLET PO ×3 (06:51→22:02)
[2019-04-05 08:00] VITALS: BP 156/69; PULSE 64; RESP 18; TEMP 36.5; O2SAT 99
[2019-04-05] MEDS: DOCUSATE 100 MG CAPSULE PO ×2 (08:46→20:57)
[2019-04-05] MEDS: POLYETHYLENE GLYCOL 3350 17 GM POWD.PACK PO (08:47)
[2019-04-05] MEDS: ACETAMINOPHEN 325 MG TABLET 975 MG PO ×3 (08:47→20:56)
[2019-04-05] MEDS: SODIUM CHLORIDE 0.9% FLUSH 10 ML IV ×5 (08:50→23:41)
--- NOTE | 2019-04-05 10:21 | PM.PNPO.1 ---
Subjective Subjective Date Patient Seen: 04/05/19 Time Patient Seen: 10:22 Interval history: Hospital day 5, postop day 4 and 2 following left forearm compartment syndrome and radial artery laceration with volar and dorsal fasciotomy, radial artery ligation and carpal tunnel release by Dr. Saavedra. Patient is complaining mostly of the forearm splint being loose and rubbing on his arm causing increased pain. No numbness to his hand. He is scheduled to go back to the OR tomorrow with Dr. Saavedra for further wound closure. Exam Vital Signs (past 8 hours): - 04/05/19 06:04 04/05/19 08:00 Temperature 97.3 F L 97.7 F Pulse Rate 63 64 Respiratory Rate 15 18 Blood Pressure 120/70 156/69 H Pulse Oximetry 98 99 Fraction of Inspired Oxygen 21 Oxygen Delivery Method Room Air Oxygen Flow Rate 0 Narrative Exam Narrative: Alert, oriented no acute distress sitting in bed. Left arm. Good blanching and sensation of fingers. The splint is loose and irritating the arm with movement. The bias wrap was removed from the splint and further padding applied proximally and then splint re-wrapped with Jean Carlos wrap and patient states this feels much better. Objective Labs Result Diagrams: 04/02/19 05:10 04/01/19 05:20 Assessment & Plan Post-op Postoperative Procedures: Procedures Operation Date: 04/01/19 07:00 Actual Procedures Side Surgeon p Dupuytren's Contracture Release Palmar Fasciectomy Mirtha Saavedra MD Operation Date: 04/03/19 16:45 Actual Procedures Side Surgeon p Arm I&D with limited debridement of muscle w/ partial DPC Left Mirtha Saavedra MD Operation Date: 04/06/19 13:00 <No data on this case meets the specified criteria> Plan: Patient will continue with left arm elevation. Changed IV Dilaudid to 1 mg q.1h as needed for better pain control. Patient will be NPO after midnight per anticipated left arm surgery tomorrow Quality VTE Deep Vein Thrombosis/Pulmonary Embolism Present on Admission: No
--- NOTE | 2019-04-05 11:04 | DIET.PN ---
Dietary Progress Note Assessment: 43y M Hospital day 5, postop day 4 and 2 following left forearm compartment syndrome and radial artery laceration with volar and dorsal fasciotomy, radial artery ligation and carpal tunnel release by Dr. Saavedra. Pt is consuming 100% of meals c General diet order. HT: 187.9cm WT: 115.6kg BMI: 32 Labs: hgb 10.8 (L) Nutrition Diagnosis: Increased PRO needs r/t wound healing aeb extensive multiple procedures for arm laceration. Interventions: Recc ONS Kei bid to aid collagen formation and wound healing Monitoring/Evaluations: as needed
[2019-04-05 12:00] VITALS: BP 128/75; PULSE 65; RESP 14; TEMP 36.4; O2SAT 97
[2019-04-05] MEDS: KETOROLAC 30 MG/ML VIAL IV ×2 (15:37→22:02)
[2019-04-05 16:00] VITALS: BP 125/77; PULSE 73; RESP 18; TEMP 36.6; O2SAT 97
[2019-04-05] MEDS: OXYCODONE ER 10 MG TAB PO (20:57)
[2019-04-05 20:59] VITALS: BP 141/62; PULSE 74; RESP 17; TEMP 36.5; O2SAT 96
--- NOTE | 2019-04-05 22:11 | PC.NURSE ---
pain management pt has rated pain 6-9/10 throughout shift. keeping Left arm elevated when in bed. Non verbal cues indicate 3-4/10 as pt is able to converse and joke easily and is playing games for distraction with family. Pt continues to be alert and able to voice needs/questions. Pt anticipates surgery tomorrow.
[2019-04-05 23:34] VITALS: BP 138/66; PULSE 83; RESP 17; TEMP 36.2; O2SAT 99
[2019-04-06] VITALS (15 sets, daily range): BP systolic 90–136; BP diastolic 53–87; PULSE 62–86; RESP 10–22; TEMP 36.1–36.6; O2SAT 92–100
[2019-04-06] MEDS: hydrOXYzine pamoate 25 MG CAPSULE 50 MG PO ×3 (01:26→19:58)
[2019-04-06] MEDS: HYDROMORPHONE 2 MG TABLET 4 MG PO ×3 (02:12→21:06)
[2019-04-06] MEDS: HYDROMORPHONE 1 MG INJ IV ×8 (06:06→22:19)
[2019-04-06] MEDS: SODIUM CHLORIDE 0.9% FLUSH 10 ML IV ×5 (06:06→21:06)
[2019-04-06] MEDS: diphenhydrAMINE 25 MG TABLET PO (06:06)
[2019-04-06] MEDS: GABAPENTIN 300 MG CAPSULE PO ×2 (06:06→17:32)
[2019-04-06] MEDS: CEFAZOLIN 2 GM/100 ML FROZ.PIGGY IV ×2 (08:39→15:55)
[2019-04-06] MEDS: ACETAMINOPHEN 325 MG TABLET 975 MG PO ×3 (08:39→21:05)
[2019-04-06] MEDS: OXYCODONE ER 10 MG TAB PO ×2 (08:40→21:05)
[2019-04-06] MEDS: LACTATED RINGERS 1,000 ML 42 ML IV (12:44)
--- NOTE | 2019-04-06 13:19 | SUR.OPER ---
Supine on padded OR bed, head on pillow, arms secured on padded arm boards at <90 degrees abduction, legs uncrossed, safety belt at thigh, tape over blanket over lower legs.
[2019-04-06] MEDS: BUPIVACAINE 0.5% (PF) VIAL 30 ML INJ (13:23)
[2019-04-06] MEDS: HYDROMORPHONE 2 MG INJ 0.5 MG IV ×4 (13:57→14:21)
--- NOTE | 2019-04-06 15:14 | PM.OP.1 ---
Operative Date/Time/Diagnoses Date of procedure: 04/06/19 Time of procedure: 13:04 Pre-op diagnosis: Left forearm fasciotomy with open wound Post-op diagnosis: same Procedure & Clinicians Procedure: Irrigation and debridement left forearm, closure of 8 cm fasciotomy wound Indications: 43-year-old gentleman with a history of compartment syndrome and fasciotomies who is now return to the operating room for repeat irrigation and debridement and possible closure. Surgeon: Mirtha Saavedra Click Yes if Unassisted: Yes Anesthesia Type: General Operative Notes Findings: Healing wound with decreased swelling and decreased tension closed with no significant tension, minimal debridement of subcutaneous tissue, no necrotic-appearing muscle Closure Type: non-primary Specimen(s): none sent Estimated Blood Loss (mL): 10 Blood products transfused: none Tourniquet time (min): 0 Procedure in detail: History of brought to the operating room he underwent general anesthesia. His left upper extremity prepped draped standard sterile fashion. High arm tourniquet was applied but not elevated. Patient is on an of preoperative antibiotics and the dose was not do. Time-out was performed. The patient's left arm was meticulously irrigated with normal saline a small amount of subcutaneous fat was debrided, the muscle appeared viable, there was an 8 cm wound with about a 3-4 cm gap centrally. It was closed with interrupted nylon with near far far near suture technique. The subcutaneous flaps were gently mobilized. There did not appear to be excessive tension. The previous surgical wounds appear to be healing appropriately. The wounds were dressed sterilely and he was placed in a left arm splint. Complications: none Post-operative Condition: stable Disposition: Acute Care Plan for aftercare: Okay to do progressive [id number] exercises, splint for a week, outpatient therapy to work on progressive arm range of motion and strengthening, okay to DC his splint, remove sutures at 10-14 days postoperatively
--- NOTE | 2019-04-06 17:01 | CM.DPC ---
DCP: continued: EMR reviewed and case discussed in Team Rounds today. Pt going again to OR. DCP team to continue to follow. P: had been identified in DCP assessment note by SAMANTHA Joe as home when stable for same. Pt would benefit from a check in after surgery to see is this plan remains doable and appropriate.
[2019-04-06] MEDS: DOCUSATE 100 MG CAPSULE PO (21:05)
[2019-04-07] MEDS: GABAPENTIN 300 MG CAPSULE PO ×2 (00:18→06:58)
[2019-04-07] MEDS: HYDROMORPHONE 1 MG INJ IV ×2 (00:26→05:15)
[2019-04-07] MEDS: SODIUM CHLORIDE 0.9% FLUSH 10 ML IV ×3 (00:27→09:01)
[2019-04-07 00:29] VITALS: BP 102/65; PULSE 75; RESP 18; TEMP 36.4; O2SAT 95
[2019-04-07] MEDS: HYDROMORPHONE 2 MG TABLET 4 MG PO ×2 (01:31→06:58)
[2019-04-07 04:54] VITALS: BP 102/49; PULSE 71; RESP 16; TEMP 36.4; O2SAT 95
--- NOTE | 2019-04-07 07:01 | PC.NURSE ---
Patient having pain issues. Requiring IV and po dilaudid. Declines ice for arm/hand, states it makes the pain worse. Able to sleep between meds.
[2019-04-07] MEDS: POLYETHYLENE GLYCOL 3350 17 GM POWD.PACK PO (09:00)
[2019-04-07] MEDS: ACETAMINOPHEN 325 MG TABLET 975 MG PO (09:00)
[2019-04-07] MEDS: OXYCODONE ER 10 MG TAB PO (09:00)
[2019-04-07] MEDS: DOCUSATE 100 MG CAPSULE PO (09:01)
[2019-04-07] MEDS: hydrOXYzine pamoate 25 MG CAPSULE 50 MG PO (09:01)
--- NOTE | 2019-04-07 09:50 | PM.DS.1 ---
History of Present Illness History of Present Illness Date Patient Seen: 04/07/19 Time Patient Seen: 09:50 Chief complaint: Left arm laceration Narrative: Extensive left forearm fasciotomy volar and dorsal with debridement of limited severely ischemic FCR muscle, radial artery ligation with exploration of the penetrating wound with injury to arterial structures, inter compartmental pressure monitoring preoperatively folder and dorsal and post fasciotomy and release volar and dorsal, carpal tunnel release Same procedure as scheduled: Yes Indications: This is a 43-year-old gentleman who was taken to the operating room on an emergent basis for a severe left compartment syndrome. He had a history of injury to his left forearm with a plate glass window at home and then developed severe left arm pain with markedly elevated compartment pressures and a clinical examination consistent with severe compartment syndrome. The OR crew was quickly mobilized and he was brought to the operating room on an emergent basis as soon as possible for fasciotomy. Discharge Providers Provider Date of admission: 04/01/19 05:33 Discharge Date: 04/07/19 Consults: 04/01/19 10:44 Consult to Discharge Planning Routine Comment: Consult to Physical Therapy Evaluate & Treat Comment: Physician Instructions: Evaluate and Treat Consult to Respiratory Therapy Evaluate & Treat Comment: Physician Instructions: Evaluate and treat Discharge provider: Virgen Gallego PA-C Summary Hospital Course Discharge Diagnosis: s/p faciotomies s/p I+D and primary closure Hospital Course: Romaine was admitted for a laceration to his left forearm after he stumbled while walking down some stairs and put his left arm through a glass window. He has a small but deep cut that was squirting blood on scene. He developed compartment syndrome. On 04/01, he underwent Extensive left forearm fasciotomy volar and dorsal with debridement of limited severely ischemic FCR muscle, radial artery ligation with exploration of the penetrating wound with injury to arterial structures, inter compartmental pressure monitoring preoperatively folder and dorsal and post fasciotomy and release volar and dorsal, carpal tunnel release. On 04/03, he underwent Irrigation and debridement with limited excisional debridement of necrotic muscle and partial DPC 8 cm dorsal wound, 16 cm of the volar wound which was a partial closure. On 04/06, he underwent Irrigation and debridement left forearm, closure of 8 cm fasciotomy wound. He has had difficulty with pain control while in the hospital. His pain is now well controlled with OxyContin 10 mg b.i.d., Dilaudid 4 mg q.3 hours, Vistaril 50 mg, gabapentin, and Tylenol. His splint is well fitting today and CDI. He is eating and voiding without difficulty or assistance. Has been elevating his arm. Exam Vital Signs (past 8 hours): - 04/07/19 04:54 Temperature 97.6 F Pulse Rate 71 Respiratory Rate 16 Blood Pressure 102/49 L Pulse Oximetry 95 Fraction of Inspired Oxygen 21 Oxygen Delivery Method Room Air Oxygen Flow Rate 0 Narrative Exam Narrative: Patient lying in bed in no acute distress. He is alert and oriented x3. Calves are soft, compressible, nontender bilaterally. Splint on left arm is CDI. He is able to wiggle his fingers. Auto Wheel Alignment Specialist strength strong equal. Objective Labs Result Diagrams: 04/02/19 05:10 04/01/19 05:20 Discharge Plan Discharge Plan Patient Disposition: Home Discharge Med Rec/Prescriptions Prescriptions: New docusate sodium [DOK] 100 mg Capsule 100 mg PO BID Qty: 60 RF: 0 hydromorphone [Dilaudid] 2 mg tablet 2 mg PO Q4-6H PRN (Reason: pain) Qty: 60 RF: 0 gabapentin [Neurontin] 300 mg Capsule 300 mg PO Q6HR Qty: 30 RF: 1 hydroxyzine pamoate 25 mg Capsule 50 mg PO Q4HR PRN (Reason: Muscle Spasm) Qty: 50 RF: 1 acetaminophen 325 mg Tablet 975 mg PO TID Qty: 60 RF: 0 ibuprofen 400 mg tablet 400 mg PO Q6H PRN (Reason: pain) Qty: 60 RF: 0 oxycodone [OxyContin] 10 mg Tablet,Oral Only,Ext.Rel.12 Hr 10 mg PO BID Qty: 16 RF: 0 Discontinued cephalexin [Keflex] 500 mg capsule 500 mg PO QID 7 Days Qty: 28 RF: 0 Follow up/Referrals: Mirtha Saavedra MD [Physician] - (10-14 days; please call to schedule.) Provider Discharge Instructions Activity: Per Op note: remove sutures at 10-14 days postoperatively. okay to DC his splint, Okay to do progressive [id number] exercises outpatient therapy to work on progressive arm range of motion and strengthening, Cold/Heat Therapy: as needed Skin/Wound/Dressing Care Report to your healthcare provider any signs of infection, such as:: chills, fever and increased pain Dressing: leave in place until appointment Visit Report/Discharge Packet Instructions: How to Care for a Laceration After Repair, Acute Compartment Syndrome, DI for Incision and Drainage, [facility]: Wound Care Quality VTE Deep Vein Thrombosis/Pulmonary Embolism Present on Admission: No
--- NOTE | 2019-04-07 11:12 | CM.DPC ---
DCP Discharge Home Per MD, pt is medically stable to d/c home today via spouse POV. Per RN, pt and spouse have questions about their medical insurance as Admissions Counselors were able to confirm pt qualifies for about.me. SW printed off pt's [employer] eligibility information and member id from scanning in Registration notes and met bedside with pt and spouse and they will take his [employer] information to [facility] in [place] to get rx filled prior to catching the [address]30 ferry back to [place]. Plan: Patient to d/c home today via spouse POV back to [place] and no further SW needs at this time. SAMANTHA Mccormack
--- NOTE | 2019-04-07 12:14 | PC.NURSE ---
Discharge Pt states pain is controlled with oral meds. d/c instructions provided to pt and his girlfriend. Aware to f/u with MD for f/u apts as well as for any additional questions or concerns. Left with all belongings. Received copy of insurance information from PARKING ANALYST and received Rx for d/c as well. Given to pt's girlfriend at d/c. left in w/c with SUPERVISOR ASSEMBLY DEPARTMENT escort.
== END 2019-04-07 11:15 | disposition home or self-care (01) | DRG 317 ==
LOC: ED 05:33 → AC 05:43
PROVIDERS: Anesthesiology; Admitting Provider Orthopaedic Surgery; Emergency Provider Emergency Medicine; Visit Provider Orthopaedic Surgery
PROC: 0KNB0ZZ Release Left Lower Arm and Wrist Muscle, Open Approach (ICD-10-PCS; CPT 26045; principal; 2019-04-01 07:00)
PROC: 0KBB0ZZ Excision of Left Lower Arm and Wrist Muscle, Open Approach (ICD-10-PCS; principal; 2019-04-03 16:45)
PROC: 0KDB0ZZ Extraction of Left Lower Arm and Wrist Muscle, Open Approach (ICD-10-PCS; principal; 2019-04-06 13:00)
DX: T79.A12A Traumatic compartment syndrome of left upper extremity, initial encounter (principal); S55.112A Laceration of radial artery at forearm level, left arm, initial encounter; I96 Gangrene, not elsewhere classified; W18.39XA Other fall on same level, initial encounter; Y92.008 Other place in unspecified non-institutional (private) residence as the place of occurrence of the external cause
CPT/HCPCS: 12002; 36415; 36591; 73090; 80048; 85014; 85018; 85025; 85027; 86850; 86900; 86901; 94760; 94762; 96374; 96375; 96376; 97161; 97530; 99281; 99283; J0330; J0690; J1100; J1170; J1644; J1885; J2250; J2405; J2704; J2765; J3010

== ENCOUNTER 2022-07-11 18:20 | Emergency (ER) | payer OTHER, SELFPAY ==
[2019-04-01 11:00] VITALS: BMI 32.7
[2022-07-11 18:34] VITALS: BP 145/91; PULSE 114; RESP 18; O2SAT 97; BMI 33.3
[2022-07-11] MEDS: OLANZapine ODT 10 MG TAB 20 MG PO (18:54)
--- NOTE | 2022-07-11 19:05 | PC.NURSE ---
Placed patient's omeprazole bottle, cyclobenzaprine bottle, cigarettes, law librarian, and dip can into locked patient belongings. Pt educated on reason and agrees with plan. Pt has clothes, cards, and his phone with him. Provided pt safety attire to change into, pt states he would like to search his clothing for tracking devices then will change. Educated on plan of care, pt verbalizes understanding, safety ensured.
[2022-07-11 19:10] VITALS: TEMP 37.3
[2022-07-11 19:16] LABS: Ur Creatinine Normal (Normal); Ur Specific Gravity Normal (Normal); Urine pH Normal (Normal)
[2022-07-11 19:17] LABS: UR Morphine/Opiate cutoff 300 Negative (Negative); Urine Amphetamines Positive (Negative); Urine Barbiturates Negative (Negative); Urine Benzodiazepines Negative (Negative); Urine Cocaine Negative (Negative); Urine MDMA Negative (Negative); Urine Methamphetamines Positive (Negative); Urine Phencyclidine Negative (Negative); Urine Tetrahydrocannabinol Positive (Negative)
[2022-07-11 19:18] LABS: Urine Oxycodone Negative (Negative); Urine Tricyclic Antidepressant Positive (Negative)
[2022-07-11 19:23] LABS: Bacteria Urine None Seen; Hyaline Casts Urine 0-1/LPF; RBC Urine None Seen (0-5/HPF); WBC Urine 0-1/HPF (0-5/HPF)
[2022-07-11 19:23] LABS: Add Manual Diff / Slide Review NO; Basophils Absolute Auto 0 /uL (0-100); Basophils Percent Auto 0.4 % (0-2); Eosinophils Absolute Auto 100 /uL (0-450); Eosinophils Percent Auto 0.5 % (2-4); Hematocrit 40.6 % (41-53); Hemoglobin 13.9 g/dL (13.5-17.5); Lymphocytes Absolute Auto 1500 /uL (1100-4500); Lymphocytes Percent Auto 12.3 % (25-40); Mean Corpuscular HGB Conc 34.3 % (30-36); Mean Corpuscular Hemoglobin 32.5 PG (26-34); Mean Corpuscular Volume 94.8 fL (80-100); Monocytes Absolute Auto 1100 /uL (0-900); Monocytes Percent Auto 9.1 % (3-14); Neutrophils Absolute Auto 9800 /uL (1500-7000); Neutrophils Percent Auto 77.7 % (50-75); Platelet Count 147 X10^3/uL (150-400); Red Blood Cell Count 4.28 X10^6/uL (4.5-5.9); Red Cell Distribution Width 13.3 % (11.6-14.8); White Blood Cell Count 12.6 X10^3/uL (4.5-11.0)
[2022-07-11 19:24] LABS: Culture Indicated Urine Cult Not Indicated; Mucus Urine 2+ (Negative)
[2022-07-11 19:28] LABS: Alanine Aminotransferase 47 IU/L (<50); Albumin 4.9 g/dL (3.5-5.0); Albumin Globulin Ratio 1.4 (1.0-2.8); Alkaline Phosphatase 91 U/L (38-126); Aspartate Aminotransferase 56 IU/L (17-59); BUN Creatinine Ratio 15.1 (6-22); Bilirubin Total 1.1 mg/dL (0.2-1.3); Blood Urea Nitrogen 22 mg/dL (9-20); Carbon Dioxide 26 mmol/L (22-32); Chloride 100 mmol/L (98-107); Estimated Glomerular Filt Rate 59 mL/min (>60); Ethanol (ETOH) < 10 mg/dL; Globulin 3.4 g/dL (1.7-4.1); Glucose 99 mg/dL (70-100); HEMOLYSIS < 15 (0-50); Potassium 3.8 mmol/L (3.4-5.1); Sodium 135 mmol/L (137-145); Total Protein 8.3 g/dL (6.3-8.2)
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
[2022-07-11 20:04] LABS: TSH w/ Reflex to FT4 3.27 uIU/mL (0.47-4.68)
--- NOTE | 2022-07-11 20:21 | PC.NURSE ---
Pt laying on stretcher with eyes closed, breathing even and unlabored.
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
[2022-07-11 22:53] VITALS: BP 127/78; PULSE 98; RESP 20; O2SAT 98
--- NOTE | 2022-07-11 23:20 | PC.NURSE ---
report received - assumed care of pt at this time - resting quietly with eyes closed and respirations equal and unlabored bilaterally
--- NOTE | 2022-07-12 | PC.NURSE ---
Resting quietly with eyes closed - talking in his sleep - observed in no distress - airway patent
--- NOTE | 2022-07-12 00:30 | PC.NURSE ---
no changes in pt status at this time
--- NOTE | 2022-07-12 01:00 | PC.NURSE ---
no changes in pt status at this time
--- NOTE | 2022-07-12 01:30 | PC.NURSE ---
continues with intermittent talking out loud - continues to sleep - eyes closed - respirations equal and unlabored bilaterally
--- NOTE | 2022-07-12 02:00 | PC.NURSE ---
Continues to sleep at this time - airway patent - PWD - occasional snoring respirations noted - no concerns
--- NOTE | 2022-07-12 02:30 | PC.NURSE ---
No changes in pt status
--- NOTE | 2022-07-12 03:00 | PC.NURSE ---
pt awakens and speaks to RN at bedside - clear and sober speech - states that he was really tired and that he needed the sleep - denies other needs - states that he feels much better at this time - allowed to go back to sleep
--- NOTE | 2022-07-12 03:30 | PC.NURSE ---
Resting quietly in NAD - no needs voiced - PWD with respirations equal and unlabored bilaterally
--- NOTE | 2022-07-12 04:00 | PC.NURSE ---
No changes in pt status at this time
--- NOTE | 2022-07-12 04:30 | PC.NURSE ---
No changes in pt status at this time
--- NOTE | 2022-07-12 05:00 | PC.NURSE ---
no changes at this time
--- NOTE | 2022-07-12 05:30 | PC.NURSE ---
No changes in pt status at this time
--- NOTE | 2022-07-12 06:00 | PC.NURSE ---
No changes in pt status at this time
--- NOTE | 2022-07-12 06:30 | PC.NURSE ---
No changes in pt status
--- NOTE | 2022-07-12 07:00 | PC.NURSE ---
No changes at this time
--- NOTE | 2022-07-12 07:25 | PC.NURSE ---
Report to dayshift RN team - care relinquished at this time
== END 2022-07-12 09:58 | disposition home or self-care (01) ==
PROVIDERS: Emergency Medicine; Emergency Provider Emergency Medicine
DX: F15.10 Other stimulant abuse, uncomplicated (principal)
CPT/HCPCS: 80053; 80305; 80320; 81003; 81015; 84443; 85025; 99283